=== PATIENT | male | born 1990 | race Caucasian/White ===

== ENCOUNTER 2024-12-31 21:46 | Emergency (ER) | payer BC, OTHER ==
[~2024-12-31] VITALS: Ht 170.2 cm; Wt 74.8 kg
[2024-12-31] MEDS ORDERED: TDAP [DIPH/PERTUSSIS/TET] 0.5 ML VIAL IM ONE (23:28)
[2024-12-31] MEDS: TDAP [DIPH/PERTUSSIS/TET] 0.5 ML VIAL IM ONE (23:32)
[2025-01-01 00:17] VITALS: BP 132/80; TEMP 98.5; O2SAT 99
== END 2025-01-01 00:18 | disposition home or self-care (01) ==
LOC: ER 21:52
DX: S01.511A Laceration without foreign body of lip, initial encounter (principal); W20.8XXA Other cause of strike by thrown, projected or falling object, initial encounter; Y93.64 Activity, baseball; Y92.89 Other specified places as the place of occurrence of the external cause; Y99.8 Other external cause status
CPT/HCPCS: 90715